=== PATIENT | male | born 1985 | race Caucasian/White ===

== ENCOUNTER 2023-01-24 15:35 | Emergency (ER) | payer SELFPAY ==
[~2023-01-24] VITALS: Ht 165.1 cm; Wt 86.2 kg
--- NOTE | 2023-01-24 15:48 | NUR ---
pt walked into the er c/o right ring finger pain 2/10 s/p "a cinder block fell on it" 20 mins ago.
[2023-01-24] MEDS ORDERED: LIDOCAINE 1% INJ 50 ML MDV IJ ONE (15:57)
--- NOTE | 2023-01-24 16:00 | NUR ---
MD AT BEDSIDE FOR EVAL AND LAC REPAIR.
[2023-01-24] MEDS ORDERED: TRAM50TA2 PO (16:39)
[2023-01-24 16:51] VITALS: BP 124/68; TEMP 98.4
--- NOTE | 2023-01-24 16:51 | NUR ---
Patient discharged to home in stable condition. Written and verbal after care instructions given. Patient verbalizes understanding of instruction.
== END 2023-01-24 16:52 | disposition home or self-care (01) ==
LOC: ER 15:41
DX: S61.214A Laceration without foreign body of right ring finger without damage to nail, initial encounter (principal); Z79.899 Other long term (current) drug therapy; W20.8XXA Other cause of strike by thrown, projected or falling object, initial encounter; Y93.89 Activity, other specified; Y92.89 Other specified places as the place of occurrence of the external cause; Y99.8 Other external cause status
CPT/HCPCS: 12001; 73140; 99283; A6403; J3490